=== PATIENT | male | born 1985 | race Caucasian/White ===

== ENCOUNTER 2022-12-15 09:31 | Outpatient (CLI) | payer OTHER, SELFPAY ==
--- NOTE | 2022-12-15 | EST_ITS ---
Patient Info Name: Bulmaro Castle Age: 37 years : 1985 Gender: Male Ht: 71 in Wt: 190 lbs BSA: 2.09 m2 Exam Date: 12/15/2022 9:51 AM Exam Location: [facility] Patient Status: Outpatient Admit Date: 12/15/2022 Staff Ordering Physician: Noe Camargo MD Attending Provider: Noe Camargo MD Exercise Technologist: Luz Obando RDCS Exercise Physician: Idris Art DO Exam Type: CA stress test treadmill Study Info Indications R07.9 - Chest pain, unspecified A treadmill exercise stress test was performed. Summary 1. 1. Negative Yonas exercise stress test for ischemic ST changes by ECG criteria. 2. 2. Excellent functional capacity, achieving 13 METs of workload. 3. 3. Appropriate HR response to exercise. 4. 4. Appropriate HR recovery at 1 minute post exercise. 5. 5. No imaging with stress testing. 6. 6. Patient informed of the above results. Protocol: Yonas Stress ECG Details Stage: REST Duration (min): 0 min : 57 sec Speed (mph): 0.0 Grade (%): 0 HR (bpm): 53 SBP (mmHg): 120 DBP (mmHg): 83 METS: --- Stage: REST Duration (min): 16 min : 30 sec Speed (mph): 0.0 Grade (%): 0 HR (bpm): 75 SBP (mmHg): 120 DBP (mmHg): 83 METS: --- Stage: STAGE 1 Duration (min): 1 min : 0 sec Speed (mph): 1.7 Grade (%): 10 HR (bpm): 99 SBP (mmHg): 120 DBP (mmHg): 83 METS: --- Stage: STAGE 1 Duration (min): 2 min : 0 sec Speed (mph): 1.7 Grade (%): 10 HR (bpm): 99 SBP (mmHg): 120 DBP (mmHg): 83 METS: --- Stage: STAGE 1 Duration (min): 3 min : 0 sec Speed (mph): 1.7 Grade (%): 10 HR (bpm): 101 SBP (mmHg): 131 DBP (mmHg): 72 METS: --- Stage: STAGE 2 Duration (min): 1 min : 0 sec Speed (mph): 2.5 Grade (%): 12 HR (bpm): 109 SBP (mmHg): 131 DBP (mmHg): 72 METS: --- Stage: STAGE 2 Duration (min): 2 min : 0 sec Speed (mph): 2.5 Grade (%): 12 HR (bpm): 116 SBP (mmHg): 156 DBP (mmHg): 78 METS: --- Stage: STAGE 2 Duration (min): 3 min : 0 sec Speed (mph): 2.5 Grade (%): 12 HR (bpm): 125 SBP (mmHg): 156 DBP (mmHg): 78 METS: --- Stage: STAGE 3 Duration (min): 1 min : 0 sec Speed (mph): 3.4 Grade (%): 14 HR (bpm): 136 SBP (mmHg): 176 DBP (mmHg): 81 METS: --- Stage: STAGE 3 Duration (min): 2 min : 0 sec Speed (mph): 3.4 Grade (%): 14 HR (bpm): 143 SBP (mmHg): 176 DBP (mmHg): 81 METS: --- Stage: STAGE 3 Duration (min): 3 min : 0 sec Speed (mph): 3.4 Grade (%): 14 HR (bpm): 147 SBP (mmHg): 185 DBP (mmHg): 84 METS: --- Stage: STAGE 4 Duration (min): 1 min : 0 sec Speed (mph): 4.2 Grade (%): 16 HR (bpm): 161 SBP (mmHg): 185 DBP (mmHg): 84 METS: --- Stage: STAGE 4 Duration (min): 2 min : 0 sec Speed (mph): 4.
== END 2022-12-15 09:32 | disposition home or self-care (01) ==
LOC: ANHCARD 09:32
PROVIDERS: PCP Emergency Medicine; Visit Provider Emergency Medicine
DX: R07.9 Chest pain, unspecified (principal)
CPT/HCPCS: 93017